=== PATIENT | female | born 1975 ===

== ENCOUNTER → 2022-05-26 08:22 | Outpatient (BNVA) | payer OTHER, BC, SELFPAY | PROVIDERS: PCP Nurse Practitioner; Visit Provider Nurse Practitioner Family | DX: F07.81 Postconcussional syndrome (principal); G43.009 Migraine without aura, not intractable, without status migrainosus; F09 Unspecified mental disorder due to known physiological condition; M54.2 Cervicalgia | CPT/HCPCS: 99202 ==

== ENCOUNTER → 2022-08-02 09:50 | Outpatient (BNVA) | payer OTHER, BC, SELFPAY | PROVIDERS: PCP Nurse Practitioner; Visit Provider Nurse Practitioner Family | DX: F07.81 Postconcussional syndrome (principal); F09 Unspecified mental disorder due to known physiological condition; G43.009 Migraine without aura, not intractable, without status migrainosus | CPT/HCPCS: 99212 ==

== ENCOUNTER → 2022-11-01 08:55 | Outpatient (BNVA) | payer OTHER, BC, SELFPAY | PROVIDERS: PCP Nurse Practitioner; Visit Provider Nurse Practitioner Family ==